=== PATIENT | female | born 1970 | race African-American/Black ===

== ENCOUNTER 2016-07-17 13:55 | Emergency (ER) | payer OTHER ==
[2016-07-17 15:06] LABS: BASOPHIL 0.4 % (0-2); EOSINOPHIL 5.6 % (0-5); HCT 35.2 % (37.0-47.0); HGB 11.8 g/dl (12.5-16.0); LYMPHOCYTE 40.2 % (15-48); MCH 29.4 pg (25.0-31.0); MCHC 33.5 g/dL (32.0-36.0); MCV 87.8 fL (78.0-100.0); MONOCYTE 6.7 % (0-12); MPV 8.9 fL (6.0-9.5); NEUTROPHIL 47.1 % (41-80); PLT 332 K/uL (150-400); RBC 4.01 M/uL (4.20-5.40); RDW 13.3 % (11.5-14.0); WBC 7.3 K/uL (4.0-10.5)
[2016-07-17 15:22] LABS: CREATININE 0.8 mg/dL (0.5-1.0); POTASSIUM 4.6 mmol/L (3.5-5.1)
[2016-07-17 15:33] LABS: BILIRUBIN NEGATIVE (NEGATIVE); BLOOD TRACE-LYSED Ery/uL (NEGATIVE); CLARITY CLEAR (CLEAR); COLOR YELLOW (YELLOW); GLUCOSE (U) NORMAL (NORMAL); KETONE (U) NEGATIVE (NEGATIVE); LEUKOCYTES NEGATIVE Leu/uL (NEGATIVE); NITRITE NEGATIVE (NEGATIVE); PROTEIN NEGATIVE (NEGATIVE); SPECIFIC GRAVITY 1.015 (1.001-1.030); UROBILINOGEN 0.2 mg/dL (0.2-1.0)
[2016-07-17 15:49] LABS: BENZODIAZEPINES NEGATIVE (NEGATIVE); COCAINE NEGATIVE (NEGATIVE)
[2016-07-17 15:50] LABS: AMPHETAMINES NEGATIVE (NEGATIVE); BARBITURATES NEGATIVE (NEGATIVE); MARIJUANA (THC) NEGATIVE (NEGATIVE); METHADONE NEGATIVE (NEGATIVE); TRICYCLIC ANTIDEPRESSANT NEGATIVE (NEGATIVE)
== END 2016-07-17 17:32 | disposition home or self-care (01) ==
LOC: FER 13:55
PROVIDERS: Nurse Practitioner
DX: M54.5 Low back pain (principal); G89.29 Other chronic pain; Z87.39 Personal history of other diseases of the musculoskeletal system and connective tissue; Z79.899 Other long term (current) drug therapy
CPT/HCPCS: 36415; 80048; 80305; 81001; 85025; J2270

== ENCOUNTER 2020-10-16 22:45 | Emergency (ER) | payer OTHER ==
[~2020-10-16 22:45] MED LIST: MOBIC7.5 MG PO; NEURONTIN400 MG PO; NORCO 5-325 TA1 EACH PO; PERCOCET 5-3251 EACH PO; TIZANIDINE HCL4 M1 PO; VISTARIL50 MG PO; ZYRTEC10 M3 PO
[2020-10-17] MEDS ORDERED: MEDROL 4MG DOSEP4 MG PO (02:38)
[2020-10-17] MEDS ORDERED: NORCO 5-325 TA1 EACH PO (02:38)
== END 2020-10-17 02:53 | disposition home or self-care (01) ==
LOC: FER 22:45
DX: J02.0 Streptococcal pharyngitis (principal); I10 Essential (primary) hypertension; Z79.899 Other long term (current) drug therapy; Z20.822 Contact with and (suspected) exposure to COVID-19
CPT/HCPCS: 87880; 99283; J0561; U0002

== ENCOUNTER → 2021-09-20 | Day surgery (SDC) | payer OTHER ==
[~2021-09-20] VITALS: Ht 170.2 cm; Wt 89.3 kg
[~2021-09-20] MED LIST changes: +AMLODIPINE BESYL5 MG PO; +CETIRIZINE HCL10 MG PO; +DICLOFENAC POTA25 MG PO; +DUPIXENT P300 MG/2 M SC; +MEDROL 4MG DOSEP4 MG PO; +NEURONTIN100 MG PO; -NEURONTIN400 MG PO; +PHENTERMINE H37.5 MG PO
[2021-09-20 08:38] LABS: HCG (URINE) SCREEN NEGATIVE (NEGATIVE)
== END | disposition home or self-care (01) ==
LOC: FAS 07:58
PROVIDERS: Anesthesiology
DX: Z12.11 Encounter for screening for malignant neoplasm of colon (principal); K57.30 Diverticulosis of large intestine without perforation or abscess without bleeding; F41.9 Anxiety disorder, unspecified; M19.90 Unspecified osteoarthritis, unspecified site; I10 Essential (primary) hypertension; Z87.891 Personal history of nicotine dependence; Z86.010 Personal history of colon polyps; Z80.0 Family history of malignant neoplasm of digestive organs
CPT/HCPCS: 84703; J2704; J7120